=== PATIENT | female | born 1965 | race Native Hawaiian/Other Pacific Islander ===

== ENCOUNTER 2018-06-25 08:14 | Observation (INO) ==
[~2018-06-25 08:14] MED LIST: Gelatin Size 100 Topical Foam ONE; Thrombin Topical Soln 5,000 UNIT Vial TOPICAL ONE; methylPREDNISolone acetate 40 MG/ML VIAL ONE
[2018-06-25] MEDS ORDERED: Chlorhexidine Gluconate 2% 1 Pack (2 Cloths) TOPICAL SCH (08:42)
[2018-06-25] MEDS ORDERED: Metoprolol Tartrate 25 MG Tablet PO SCH (08:42)
[2018-06-25] MEDS ORDERED: Sodium Chlor 0.9% Inj 500 ML IV.SIG SCH (09:00)
[2018-06-25] MEDS ORDERED: Vancomycin Inj 1,000 MG in Sodium Chlor 0.9% Inj 250 ML IV.SIG SCH (09:00)
[2018-06-25] MEDS ORDERED: Sod Chloride 0.9% Inj 1,000 ML IV.SIG SCH (09:00)
[2018-06-25] MEDS ORDERED: Propofol Inj 500 MG/50 ML Vial ONE (09:24)
[2018-06-25 10:08] LABS: Prothrombin Time 10.1 sec (9.8-11.6)
[2018-06-25] MEDS ORDERED: Bupivacaine/Epinephrine 0.5% Inj 50 ML Vial INFILTRATN ONE (12:00)
[2018-06-25] MEDS ORDERED: Thrombin Topical Soln 5,000 UNIT Vial TOPICAL ONE (12:20)
[2018-06-25] MEDS ORDERED: Menthol 5.8 MG Lozenge BUCCAL PRN (13:08)
--- NOTE | 2018-06-25 13:19 | P.OP ---
- Preoperative Diagnosis (1) Cervical radiculopathy due to degenerative joint disease of spine (2) Cervical stenosis of spinal canal (3) Protrusion of cervical intervertebral disc Date of procedure: 06/25/18 Procedure: Anterior cervical C5-6 and C6-7 microdiscectomy with interbody fusion; anterior C5-7 cervical plate placement; C5-6 and C6-7 interbody cage placement; microsurgical technique Anesthesia: AARON Surgeon: Twan Alvarez MD Hand Worker: Ami Farley Estimated blood loss (mL): 10 Pathology: none sent Operation and Findings: Following administration of general endotracheal anesthesia, the patient received a gram of vancomycin and Decadron 10 mg intravenously. Sequential compression devices were placed in supine position on a Rc table and all pressure points adequately padded. The head secured in a donut and anterior cervical region then shaved and prepped with Chloraprep and sterilely draped with Ioban along with the usual sterile draping. A transverse skin incision on the left side of the neck was then made after infiltrating the skin with 0.5% Marcaine with epinephrine solution extending down through the platysma. At the anterior border of the sternocleidomastoid further dissection was undertaken developing a plane between the carotid sheath laterally and the trachea esophagus medially. The prevertebral fascia was exposed and dissected out. The medial attachments of the longus colli muscles were detached and a self- retaining retractor used for exposure. The C5-6 disc space was localized with a marking the disc space and using lateral fluoroscopy. [place] distraction screws 14 mm length were placed one in the C5, one in the C6 body and one in the C7 body for interbody distraction and exposure. There was significant disc degeneration with disc height collapse and anterior osteophytes noted at the C5- 6 and C6-7 levels and the osteophytes were resected with a Leksell and annulus incised with a 15 blade and further dissection undertaken using microtechnique with microscope magnification. Diskectomy was undertaken with pituitaries and the endplates were also decorticated with curettes and drill bit. And more posteriorly there was disk osteophyte complex compressing the thecal sac along with a significant uncovertebral joint hypertrophy with foraminal stenosis more prominent on the left side which was decompressed along with removal of the posterior longitudinal ligaments at both levels. The foramen was decompressed bilaterally using a Kerrison's and palpation with a nerve hook, the exiting nerve roots were felt to be free. The area was then copiously irrigated. I then placed a Peek cage packed with local autograft bone at the C5-6 and C6-7 interspaces under fluoroscopy guidance. [place] distraction pins were removed and the holes plugged with Gelfoam for hemostasis. In order to facilitate the fusion and provide stabilization, a Precision spine cervical plate was then placed with two 14 mm variable angle screws in the C5 body, one in the C6 body and two 14 mm fixed angle screws in the C7 body. The plate screw locking mechanism was then engaged. AP and lateral fluoroscopy confirmed good placement of the construct and the retractor was then removed. Muscular bleeding points were cauterized with bipolar cautery and Gelfoam was then also used for hemostasis which was removed. The platysma was then approximated using 3-0 Vicryl interrupted stitches and 3-0 Vicryl subcuticular stitch also placed in an interrupted fashion, and final skin closure was with Mastisol and Steri- Strips. Sterile dressing was then applied and the neck immobilized in a [place] collar. The patient was then extubated and taken to the recovery room. There are no intraoperative complications and all sponge and needle counts were correct at the end of procedure. Estimated blood loss was about 10 cc. The patient did undergo intraoperative neurologic monitoring which remained stable throughout the surgery.
[2018-06-25] MEDS ORDERED: fentaNYL Citrate Inj 100 MCG/2 ML Ampul ONE (13:23)
--- NOTE | 2018-06-25 13:27 | XR ---
EXAM DATE: 06/25/2018 1:21 PM EST AGE/SEX: 53 years / Female INDICATIONS: Post-op C5-C6, C6-C7 anterior cervical fusion. CLINICAL DATA: This is the patient's initial encounter. Patient reports that signs and symptoms have been present for 1 day and indicates a pain score of Nonresponsive. MEDICAL/SURGICAL HISTORY: Non-responsive. Non-responsive. COMPARISON: No prior exams available for comparison. FINDINGS: Anterior cervical fusion is noted in good position at C5 through C7. CONCLUSION: Status post anterior cervical fusion hardware from C5 through C7. Electronically signed by: Donnie Velasco MD Board Certified Radiologist 06/25/2018 1:26 PM EST
[2018-06-25] MEDS ORDERED: *morphine SULFATE 4 MG/ML PERIprocedure ONLY ONE ×3 (13:28→13:56)
[2018-06-25] MEDS ORDERED: Bisacodyl 10 MG Supp RECTAL PRN (14:00)
[2018-06-25] MEDS ORDERED: Acetaminophen 325 MG Tablet PO PRN (14:00)
[2018-06-25] MEDS ORDERED: Aluminum/Magnesium/Simethacone Susp 30 ML UDC PO PRN (14:00)
[2018-06-25] MEDS ORDERED: ceFAZolin 1 GM Premix Inj 1 GM/50 ML PIGGYBACK IV.SIG ONE (14:02)
[2018-06-25] MEDS ORDERED: *HYDROmorphone PF Inj 1 MG/ML Ampul PERIprocedural Use ONLY ONE (14:22)
[2018-06-25] MEDS: ceFAZolin 1 GM Premix Inj 1 GM/50 ML PIGGYBACK IV.SIG SCH ×2 (14:43→21:07)
[2018-06-25] MEDS ORDERED: Zolpidem Tartrate 5 MG Tablet PO PRN (15:00)
[2018-06-25] MEDS: Morphine Inj 4 MG/ML Vial IV.PUSH PRN (16:39)
[2018-06-25] MEDS ORDERED: Sodium Chloride 0.9% 2 ML Flush PRN IV.FLUSH (18:02)
[2018-06-25] MEDS: Senna/Docusate Sodium 8.6/50 MG Tablet PO SCH (21:08)
[2018-06-25] MEDS: Sodium Chloride 0.9% 2 ML Flush BID IV.FLUSH SCH (21:09)
[2018-06-26] MEDS: ceFAZolin 1 GM Premix Inj 1 GM/50 ML PIGGYBACK IV.SIG SCH (06:02)
[2018-06-26] MEDS: Senna/Docusate Sodium 8.6/50 MG Tablet PO SCH (08:40)
[2018-06-26] MEDS: Sodium Chloride 0.9% 2 ML Flush BID IV.FLUSH SCH (08:41)
[2018-06-26] MEDS: Morphine Inj 4 MG/ML Vial IV.PUSH PRN (08:53)
[2018-06-26] MEDS ORDERED: Calcium Carbonate 500 MG Tablet PO SCH (09:00)
[2018-06-26] MEDS ORDERED: hydroCHLOROthiazide 25 MG Tablet PO SCH (09:00)
[2018-06-26] MEDS ORDERED: METHYLTESTOSTERONE PO SCH (09:00)
[2018-06-26] MEDS ORDERED: [UNRECOGNIZED DRUG - OTHER] PO SCH (09:00)
--- NOTE | 2018-06-26 09:28 | P.PNNS ---
Subjective Interval history: Pt s/p Anterior cervical C5-6 and C6-7 microdiscectomy with interbody fusion; anterior C5-7 cervical plate placement; C5-6 and C6-7 interbody cage placement; microsurgical technique on 06/25/18. She states she is doing well. She has sharp spasms that come and go intermittently. When that occurs she can get some pain radiating into the LUE to the forearm. She is tolerating diet well. She is ambulating short distances. Physical Exam Vital signs: Vital Signs 06/25/18 13:10 06/25/18 13:15 06/25/18 13:30 Temperature 97.5 F L Pulse Rate 91 H 88 83 Respiratory Rate 14 14 14 Blood Pressure 112/60 123/70 132/70 Pulse Oximetry 100 100 100 06/25/18 13:45 06/25/18 14:00 06/25/18 14:30 Temperature 97.7 F Pulse Rate 82 87 86 Respiratory Rate 14 18 15 Blood Pressure 131/71 123/64 124/65 Pulse Oximetry 100 100 97 06/25/18 15:00 06/25/18 16:00 06/25/18 20:00 Temperature 98.2 F 98.3 F 98.3 F Pulse Rate 86 86 99 H Respiratory Rate 15 20 18 Blood Pressure 118/63 129/60 131/69 Pulse Oximetry 99 98 95 06/26/18 00:00 06/26/18 04:00 06/26/18 04:13 Temperature 98.2 F 97.9 F Pulse Rate 83 95 H Respiratory Rate 16 18 18 Blood Pressure 116/85 127/61 Pulse Oximetry 95 95 06/26/18 08:00 Temperature 97.8 F Pulse Rate 73 Respiratory Rate 20 Blood Pressure 143/64 H Pulse Oximetry 99 Intake & Output 06/25/18 06/26/18 06/26/18 18:59 06:59 18:59 Intake Total 2050 / 2050 1100 / 1100 240 / 240 Output Total 710 / 710 Balance 1340 / 1340 1100 / 1100 240 / 240 Weight 66.4 kg 68.6 kg Intake: IV 300 / 300 1100 / 1100 NS + KCl 20 mEq Inj 1,000 ML @ 1000 / 1000 100 mls/hr IV.CONT .Q10H CORINNA Rx #:[id number] Vancomycin Inj 1,000 MG In NS 250 / 250 Inj 250 ML @ 250 mls/hr IV.SIG LEAD INVESTIGATOR CORINNA Rx#:[id number] Ancef 1 GM Premix Inj 1 gm In 50 / 50 100 / 100 50 ml @ 200 mls/hr IV.SIG Q8H CORINNA Rx#:[id number] Oral 240 / 240 Anesthesia Amount 1750 / 1750 Output: Estimated Blood Loss 10 / 10 Urine Amount (Catheter) 700 / 700 Indwelling Urethral Catheter 700 / 700 Other: # Voids 2 1 Weight On Admission 66.4 kg - Constitutional no acute distress, average body habitus, cooperative - Routine HEENT Exam Head: Present: normocephalic Eye: Present: PERRL - Routine Neck Exam Present: trachea midline. Absent: full ROM (Centre J cervical collar in place.) - Routine Respiratory Exam Present: CTA bilaterally. Absent: respiratory distress, rhonchi, wheezes - Routine Cardiovascular Exam Present: RRR, S1, S2. Absent: murmur - Routine Abdominal Exam Present: soft, normoactive bowel sounds. Absent: distended - Routine Skin Exam Absent: cyanosis, erythema Comments: Incision clean and dry. New bandage placed. - Routine Neurological Exam Present: alert, moving all extremities, normal speech. Absent: motor deficit, altered mental status - Routine Psychiatric Exam Present: normal affect. Absent: anxious, agitated - Urinary Catheter Management Indwelling Urethral Catheter Cath placed during this visit: yes, but has since been removed by the nurse Reason for continuing: Decision to DC catheter Insertion date: 06/25/18 Insertion time: 09:55 Removal date: 06/25/18 Removal time: 15:00 Assessment and Plan - Assessment (1) Cervical stenosis of spinal canal Code(s): M48.02 - Spinal stenosis, cervical region Status: Chronic (2) Cervical radiculopathy due to degenerative joint disease of spine Code(s): M47.22 - Other spondylosis with radiculopathy, cervical region Status : Chronic (3) Protrusion of cervical intervertebral disc Code(s): M50.20 - Other cervical disc displacement, unspecified cervical region Status: Chronic - Plan A: 53 y/o FM s/p C5/C6 and C6/C7 anterior cervical fusion with cage and cervical plate placement. P: Discharge pt home Discussed incision care with pt and son Discussed activity restriction with pt and son. Discussed no smoking or NSAIDs for 3 months post op with pt and son.
[2018-06-26 15:44] VITALS: BP 134/64; PULSE 83; TEMP 98.1; O2SAT 96
[2018-06-26 16:10] VITALS: RESP 16
== END 2018-06-26 19:35 | disposition home or self-care (01) ==
LOC: HSDI 08:14 → HSDC 08:14 → N05 15:43
PROVIDERS: ADMIT Neurological Surgery; ATTEND Neurological Surgery